=== PATIENT | female | born 1985 | race Caucasian/White ===

== ENCOUNTER 2023-02-01 17:07 | Emergency (ER) | payer OTHER ==
[~2023-02-01] VITALS: Ht 160 cm; Wt 72.6 kg
[2023-02-01 17:14] VITALS: BP 152/90
== END 2023-02-01 19:04 | disposition home or self-care (01) ==
LOC: ER 17:07
DX: M26.602 Left temporomandibular joint disorder, unspecified (principal)
CPT/HCPCS: 87081; 87430; 96372; 99283-25; A9270; J1885